=== PATIENT | male | born 1975 | race Caucasian/White ===

== ENCOUNTER 2017-11-04 13:16 | Emergency (ER) | payer SELFPAY | END 2017-11-04 13:20 | disposition left against medical advice (07) | LOC: ER 13:16 | DX: R07.89 Other chest pain (principal); Z53.21 Procedure and treatment not carried out due to patient leaving prior to being seen by health care provider ==

== ENCOUNTER 2023-06-27 10:50 | Emergency (ER) | payer MEDICAID, OTHER ==
[~2023-06-27] VITALS: Ht 180.3 cm; Wt 71.8 kg
[2023-06-27 11:44] VITALS: BP 136/85; PULSE 84; RESP 16; TEMP 98.6; O2SAT 98
[2023-06-27 12:20] LABS: Basophils # (auto) 0.1 10 ^3/uL (0-0.2); Basophils % (auto) 0.6 % (0.0-2.0); Eosinophils # (auto) 0.1 10 ^3/uL (0-0.8); Eosinophils % (auto) 0.8 % (0.0-7.0); Hematocrit 46.2 % (41.0-53.0); Hemoglobin 15.6 g/dL (13.5-17.5); Lymphocytes # (auto) 1.6 10 ^3/uL (0.4-5.4); Lymphocytes % (auto) 18.4 % (10.0-50.0); Mean Corpuscular Hemoglobin 31.4 pg (28.0-32.0); Mean Corpuscular Hgb Conc. 33.9 g/dL (32.0-36.0); Mean Corpuscular Volume 92.7 fL (80.0-100.0); Monocytes # (auto) 0.5 10 ^3/uL (0-1.3); Monocytes % (auto) 6.1 % (0.0-12.0); Neutrophils # (auto) 6.3 10 ^3/uL (1.6-8.6); Neutrophils % (auto) 74.1 % (37.0-80.0); Red Blood Cells 4.98 10^6/uL (4.5-5.90); Red Cell Distribution Width 14.5 % (11.8-14.3); White Blood Cell 8.6 10^3/uL (4.4-10.8)
[2023-06-27 12:48] LABS: Chloride 107 mmol/L (98-107); Potassium 3.9 mmol/L (3.5-5.1); Sodium 139 mmol/L (136-145)
[2023-06-27 12:49] LABS: Amphetamine Screen, Urine Neg (NEGATIVE); Barbiturate Scree,Urine Neg (NEGATIVE); Benzodiazephine Screen, Urine Neg (NEGATIVE); Cannabinoid Screen, Urine Pos (NEGATIVE); Cocaine Screen, Urine Neg (NEGATIVE); Opiate Scree,Urine Neg (NEGATIVE); Phencyclidine Screen, Urine Neg (NEGATIVE)
[2023-06-27 12:49] LABS: Anion Gap 5 (5-15); Carbon Dioxide 27 mmol/L (20-30)
[2023-06-27 12:50] LABS: Calcium 9.6 mg/dL (8.5-10.1)
[2023-06-27 12:54] LABS: Glucose 85 mg/dL (74-106)
[2023-06-27 12:55] LABS: Blood Urea Nitrogen 10 mg/dL (9-23)
[2023-06-27] MEDS ORDERED: HYDR50CA PO (13:16)
== END 2023-06-27 13:17 | disposition home or self-care (01) ==
LOC: ER 10:50
DX: F41.8 Other specified anxiety disorders (principal); J44.9 Chronic obstructive pulmonary disease, unspecified; I10 Essential (primary) hypertension; Z79.899 Other long term (current) drug therapy
CPT/HCPCS: 36415; 80048; 80307; 84484; 85025

== ENCOUNTER 2024-09-07 12:19 | Emergency (ER) | payer MEDICAID ==
[~2024-09-07] VITALS: Ht 180.3 cm; Wt 77.0 kg
[~2024-09-07 12:19] MED LIST: HYDR50CA PO
[2024-09-07 13:04] VITALS: BP 119/84; PULSE 67; RESP 18; O2SAT 95
== END 2024-09-07 15:26 | disposition left against medical advice (07) ==
LOC: ER 12:19
DX: M79.642 Pain in left hand (principal); R20.2 Paresthesia of skin; Z53.21 Procedure and treatment not carried out due to patient leaving prior to being seen by health care provider